=== PATIENT | male | born 1980 | race Hispanic/Latino ===

== ENCOUNTER 2017-06-17 19:08 | Emergency (ER) | payer SELFPAY ==
[2017-06-17] MEDS ORDERED: DiphenhydrAMINE 12.5 mg/5 ml LIQ UD (5 ml) PO STA (20:25)
[2017-06-17] MEDS ORDERED: Magnesium Citrate Oral SOL (300 ml) PO ONE (20:25)
--- NOTE | 2017-06-17 20:27 | ED PDOC ---
Arrival/HPI - General Chief Complaint: Abdominal Pain Time Seen by Provider: 06/17/17 19:54 Historian: Patient - History of Present Illness Narrative History of Present Illness (Text): 06/17/17 20:38 A 36 year old male, who denies any significant past medical history, presents to the emergency department complaining of constipation for the past couple weeks. Patient also states some itching of skin, not sure if allergic to something. Patient was seen by PMD recently and had blood work done, which was all normal. Patient denies any abdominal pain, fever chills, nausea, vomiting or any other complaints at this time. No history of any rash. Time/Duration: > week Symptom Onset: Sudden Symptom Course: Unchanged Activities at Onset: Rest Context: Home Past Medical History - Provider Review Nursing Documentation Reviewed: Yes - Psychiatric Hx Substance Use: No Family/Social History - Physician Review Nursing Documentation Reviewed: Yes Family/Social History: No Known Family HX Smoking Status: n Hx Alcohol Use: Yes Hx Substance Use: No Allergies/Home Meds Allergies/Adverse Reactions: Allergies No Known Allergies Allergy (Verified 06/17/17 19:41) Review of Systems - Physician Review All systems were reviewed & negative as marked: Yes - Review of Systems Constitutional: absent: Fevers, Other (chills) Gastrointestinal: Constipation. absent: Abdominal Pain, Nausea, Vomiting Skin: Rash Physical Exam Vital Signs Reviewed: Yes Vital Signs Temp Pulse Resp BP Pulse Ox 06/17/17 19:40 97.8 F 68 18 124/72 100 Appearance: Positive for: Well-Appearing, Non-Toxic, Comfortable Pain Distress: None Mental Status: Positive for: Alert and Oriented X 3 - Systems Exam Head: Present: Atraumatic, Normocephalic Pupils: Present: PERRL Extroacular Muscles: Present: EOMI Conjunctiva: Present: Normal Mouth: Present: Moist Mucous Membranes Neck: Present: Normal Range of Motion Respiratory/Chest: Present: Clear to Auscultation, Good Air Exchange. No: Respiratory Distress, Accessory Muscle Use Cardiovascular: Present: Regular Rate and Rhythm, Normal S1, S2. No: Murmurs Abdomen: Present: Normal Bowel Sounds. No: Tenderness, Distention, Peritoneal Signs Back: Present: Normal Inspection Upper Extremity: Present: Normal Inspection. No: Cyanosis, Edema Lower Extremity: Present: Normal Inspection. No: Edema Neurological: Present: GCS=15, CN II-XII Intact, Speech Normal Skin: Present: Warm, Dry, Normal Color. No: Rashes Psychiatric: Present: Alert, Oriented x 3, Normal Insight, Normal Concentration Medical Decision Making ED Course and Treatment: 06/17/17 20:37 Impression: A 36 year old male with constipation and skin rash. Plan: -- Benadryl, Citrate of Mag -- Reassess and disposition Progress Notes: 06/17/17 20:28 On re-evaluation, patient feels better and is in no acute distress. I have discussed the results and plan with the patient, who expresses understanding. Patient in agreement with plan to be discharged home. Patient is stable for discharge. Patient was instructed to follow up with physician or return if symptoms worsen or new concerning symptoms arise. - Medication Orders Current Medication Orders: Discontinued Medications Diphenhydramine HCl (Benadryl) 25 mg PO ONCE STA Stop: 06/17/17 20:26 Last Admin: 06/17/17 20:45 Dose: 25 mg Magnesium Citrate (Citrate Of Mag) 300 ml PO ONCE ONE Stop: 06/17/17 20:26 Last Admin: 06/17/17 20:46 Dose: 300 ml - Scribe Statement The provider has reviewed the documentation as recorded by the Raya Coronado Provider Scribe Attestation: All medical record entries made by the Scribe were at my direction and personally dictated by me. I have reviewed the chart and agree that the record accurately reflects my personal performance of the history, physical exam, medical decision making, and the department course for this patient. I have also personally directed, reviewed, and agree with the discharge instructions and disposition. Disposition/Present on Arrival - Present on Arrival Any Indicators Present on Arrival: No History of DVT/PE: No History of Uncontrolled Diabetes: No Urinary Catheter: No History of Decub. Ulcer: No History Surgical Site Infection Following: None - Disposition Have Diagnosis and Disposition been Completed?: Yes Diagnosis: Constipation, Allergic reaction Disposition: HOME/ ROUTINE Disposition Time: 20:28 Patient Plan: Discharge Condition: GOOD Discharge Instructions (ExitCare): Constipation in Adults, Seasonal Allergies in Adults Additional Instructions: Take meds as prescribed/follow up with your doctor this week Prescriptions: DiphenhydrAMINE [Benadryl] 50 mg PO Q6 PRN #24 cap PRN Reason: Itching / Pruritus Polyethylene Glycol 3350 [Miralax] 17 gm PO DAILY PRN #1 bottle PRN Reason: Constipation Referrals: Payton Miller MD [Primary Care Provider] - Follow up with primary Maddie High MD [Medical Doctor] - Follow up with primary Forms: [employer] (Georgian)
[2017-06-18 00:12] VITALS: BP 124/72; PULSE 68; RESP 18; TEMP 97.8; O2SAT 100
== END 2017-06-17 20:59 | disposition home or self-care (01) ==
LOC: ED 19:08
DX: K59.00 Constipation, unspecified (principal); T78.49XA Other allergy, initial encounter; X58.XXXA Exposure to other specified factors, initial encounter